=== PATIENT | male | born 2000 | race Caucasian/White ===

== ENCOUNTER 2022-09-28 10:35 | Emergency (ER) | payer OTHER ==
[2022-09-28 10:55] VITALS: BP 150/87; PULSE 109; RESP 16; TEMP 98.1; BMI 38.6
== END 2022-09-28 12:28 | disposition home or self-care (01) ==
LOC: JERFT 10:35 → JER 10:35 → JERFT 12:28
DX: S91.155A Open bite of left lesser toe(s) without damage to nail, initial encounter (principal); W54.0XXA Bitten by dog, initial encounter
CPT/HCPCS: 73630-TC-LT; 99283-25

== ENCOUNTER 2022-12-08 16:33 | Emergency (ER) | payer OTHER ==
[2022-12-08] MEDS ORDERED: predniSONE 20 MG TABLET (UD) PO ONE (16:43)
[2022-12-08] MEDS ORDERED: predniSONE 20 MG TABLET (UD) ONE (16:48)
[2022-12-08 16:55] VITALS: BP 131/87; PULSE 122; RESP 18; TEMP 98.6; BMI 39.3
== END 2022-12-08 17:06 | disposition home or self-care (01) ==
LOC: FER 16:33
DX: H57.12 Ocular pain, left eye (principal); L24.2 Irritant contact dermatitis due to solvents
CPT/HCPCS: 99283-25

== ENCOUNTER 2023-08-27 16:05 | Emergency (ER) | payer OTHER ==
[2023-08-27 16:15] VITALS: RESP 18; TEMP 98.2; BMI 38.6
[2023-08-27] MEDS ORDERED: RABIES VACCINE (PCEC)/PF 2.5 UNIT/VIAL IM ONE (18:06)
[2023-08-27] MEDS: RABIES VACCINE (PCEC)/PF 2.5 UNIT/VIAL IM ONE (18:12)
[2023-08-27 18:40] VITALS: BP 135/75; PULSE 88
== END 2023-08-27 18:42 | disposition home or self-care (01) ==
LOC: JERFT 16:05
PROC: 3E0234Z Introduction of Serum, Toxoid and Vaccine into Muscle, Percutaneous Approach (ICD-10-PCS; principal; 2023-08-27)
DX: S51.852A Open bite of left forearm, initial encounter (principal); W55.01XA Bitten by cat, initial encounter; Z23 Encounter for immunization
CPT/HCPCS: 90675; 99283-25

== ENCOUNTER 2024-07-04 17:29 | Emergency (ER) | payer BC, OTHER ==
[2024-07-04 17:49] VITALS: PULSE 94; RESP 18; TEMP 97.8; BMI 41.8
[2024-07-04] MEDS ORDERED: NAPROXEN 500 MG TABLET ONE (17:53)
[2024-07-04] MEDS ORDERED: LIDOCAINE 5% TOPICAL PATCH ONE (17:53)
[2024-07-04] MEDS ORDERED: ACETAMINOPHEN 325 MG TABLET (FP) ONE (17:55)
[2024-07-04] MEDS: ACETAMINOPHEN 325 MG TABLET (FP) PO ONE (17:58)
[2024-07-04] MEDS: LIDOCAINE 5% TOPICAL PATCH TP ONE (17:58)
[2024-07-04] MEDS: NAPROXEN 500 MG TABLET PO ONE (17:58)
[2024-07-04 18:13] VITALS: BP 163/98
[2024-07-04] MEDS ORDERED: LIDOCAINE PATCH REMOVAL MC SCH (22:00)
== END 2024-07-04 18:20 | disposition home or self-care (01) ==
LOC: FER 17:29
DX: M54.50 Low back pain, unspecified (principal)
CPT/HCPCS: 81003; 87086; 99283-25